=== PATIENT | female | born 1975 | race Caucasian/White ===

== ENCOUNTER → 2022-06-11 | Outpatient (CLI) | payer OTHER ==
[2022-06-11 19:44] LABS: BASOPHILS ABSOLUTE AUTO 0.05 K/mm3 (0.00-0.23); BASOPHILS PERCENT AUTO 1 % (0-2); EOSINOPHILS ABSOLUTE AUTO 0.38 K/mm3 (0.00-0.68); EOSINOPHILS PERCENT AUTO 4 % (0-6); Hematocrit 42.4 % (33.0-51.0); Hemoglobin 14.2 g/dL (11.5-16.0); IMMATURE GRAN ABSOLUTE AUTO 0.03 K/mm3 (0.00-0.10); IMMATURE GRAN PERCENT AUTO 0 % (0-1); LYMPHOCYTES ABSOLUTE AUTO 2.71 K/mm3 (0.84-5.20); LYMPHOCYTES PERCENT AUTO 31 % (21-46); MONOCYTES ABSOLUTE AUTO 0.84 K/mm3 (0.16-1.47); MONOCYTES PERCENT AUTO 10 % (4-13); Mean Corpuscular HGB 30.3 pg (26.0-34.0); Mean Corpuscular HGB Conc 33.5 g/dL (31.5-36.5); Mean Corpuscular Volume 90 fL (80-100); NEUTROPHILS ABSOLUTE AUTO 4.87 K/mm3 (1.96-9.15); NEUTROPHILS PERCENT AUTO 55 % (41-73); Platelet Count 269 K/mm3 (150-400); RDW Coefficient Variation 13.5 % (11.7-14.2); RDW Standard Deviation 44.5 fL (35.1-46.3); Red Blood Cell Count 4.69 M/mm3 (3.80-5.20); White Blood Cell Count 8.88 K/mm3 (4.00-11.30)
[2022-06-11 20:58] LABS: Albumin/Globulin Ratio 1.1 (0.8-1.8); Bilirubin, Total 0.4 mg/dL (0.1-1.0); Bun/Creatinine Ratio 21.8 (12.0-20.0); Calcium, Blood 9.6 mg/dL (8.5-10.1); Creatinine, Blood 0.69 mg/dL (0.40-1.00); Globulin, Blood 3.7 g/dL (2.2-4.0); Potassium, Blood 3.5 mmol/L (3.5-5.5); Total Protein, Blood 7.7 g/dL (6.4-8.2)
== END | disposition home or self-care (01) ==
LOC: LAB 16:20 → LAB SHORT 16:20
PROVIDERS: Registered Nurse Community Health
DX: Z12.4 Encounter for screening for malignant neoplasm of cervix (principal); R19.09 Other intra-abdominal and pelvic swelling, mass and lump
CPT/HCPCS: 80053; 85025

== ENCOUNTER → 2022-08-14 | Outpatient (CLI) | payer OTHER ==
[~2022-08-14] MED LIST: CYCL10 PO; METR500 PO; TRAZ50 PO
[2022-08-15 09:09] LABS: Candida species (DNA Probe) Negative (NEGATIVE); G. vaginalis (DNA Probe) Positive (NEGATIVE); T. vaginalis (DNA Probe) Positive (NEGATIVE)
== END | disposition home or self-care (01) ==
LOC: LAB SHORT 17:00 → LAB 17:00
PROVIDERS: Registered Nurse Community Health
DX: D06.0 Carcinoma in situ of endocervix (principal); R87.811 Vaginal high risk human papillomavirus (HPV) DNA test positive; N92.6 Irregular menstruation, unspecified; R89.8 Other abnormal findings in specimens from other organs, systems and tissues
CPT/HCPCS: 87480; 87510; 87660; 88305

== ENCOUNTER 2022-08-23 14:10 | Inpatient (IN) | payer OTHER ==
[~2022-08-23] VITALS: Ht 165.1 cm; Wt 56.3 kg
[2022-08-23 14:35] LABS: Chloride (POC) 104 mmol/L (98-108); Creatinine (POC) 0.7 mg/dL (0.6-1.0); Glucose (ISTAT POC) 113 mg/dL (70-99); Hemoglobin (POC) 13.9 g/dL (12.0-16.0); Potassium (POC) 3.8 mmol/L (3.5-5.5); Sodium (POC) 140 mmol/L (135-148); Total CO2 (POC) 24 mmol/L (21-32)
[2022-08-23 14:57] LABS: BASOPHILS ABSOLUTE AUTO 0.05 K/mm3 (0.00-0.23); BASOPHILS PERCENT AUTO 1 % (0-2); EOSINOPHILS ABSOLUTE AUTO 0.27 K/mm3 (0.00-0.68); EOSINOPHILS PERCENT AUTO 3 % (0-6); Hematocrit 40.9 % (33.0-51.0); Hemoglobin 13.8 g/dL (11.5-16.0); IMMATURE GRAN ABSOLUTE AUTO 0.03 K/mm3 (0.00-0.10); IMMATURE GRAN PERCENT AUTO 0 % (0-1); LYMPHOCYTES ABSOLUTE AUTO 2.82 K/mm3 (0.84-5.20); LYMPHOCYTES PERCENT AUTO 27 % (21-46); MONOCYTES ABSOLUTE AUTO 1.04 K/mm3 (0.16-1.47); MONOCYTES PERCENT AUTO 10 % (4-13); Mean Corpuscular HGB 30.8 pg (26.0-34.0); Mean Corpuscular HGB Conc 33.7 g/dL (31.5-36.5); Mean Corpuscular Volume 91 fL (80-100); NEUTROPHILS ABSOLUTE AUTO 6.31 K/mm3 (1.96-9.15); NEUTROPHILS PERCENT AUTO 60 % (41-73); Platelet Count 277 K/mm3 (150-400); RDW Standard Deviation 43.9 fL (35.1-46.3); Red Blood Cell Count 4.48 M/mm3 (3.80-5.20); White Blood Cell Count 10.52 K/mm3 (4.00-11.30)
[2022-08-23 15:02] LABS: Alanine Aminotransfer (ALT/SGP 30 U/L (12-78); Albumin, Blood 4.1 g/dL (3.4-5.0); Albumin/Globulin Ratio 1.2 (0.8-1.8); Alk Phos 78 U/L (50-136); Anion Gap 5 mmol/L (6-16); Aspartate Aminotrans (AST/SGOT 18 U/L (12-37); Bilirubin, Total 0.3 mg/dL (0.1-1.0); Blood Urea Nitrogen 19 mg/dL (8-24); Bun/Creatinine Ratio 22.9 (12.0-20.0); CO2, Blood 26 mmol/L (21-32); Calcium, Blood 9.6 mg/dL (8.5-10.1); Chloride, Blood 108 mmol/L (98-108); Creatinine, Blood 0.83 mg/dL (0.40-1.00); Ethanol (Alcohol), Blood, Med <3 mg/dL; Globulin, Blood 3.5 g/dL (2.2-4.0); Glomerular Filtration Rate 89 (60-); Glucose, Blood 122 mg/dL (70-99); Potassium, Blood 3.9 mmol/L (3.5-5.5); Sodium, Blood 139 mmol/L (136-145); Total Protein, Blood 7.6 g/dL (6.4-8.2)
[2022-08-23 15:20] LABS: Source, Urine Foley catheter
[2022-08-23 15:26] LABS: Appearance, Urine Clear (Clear); Bilirubin, Urine Neg (Neg); Blood, Urine Neg (Neg); Color, Urine Yellow (P-Yellow); Glucose Qualitative, Urine Neg (Neg); Ketones, Urine Neg (Neg); Leukocyte Esterase, Urine 1+ (Neg); Nitrite, Urine Neg (Neg); Protein, Urine Neg (Neg); Specific Gravity, Urine 1.025 (1.003-1.022); Urobilinogen, Urine NORM (Normal)
[2022-08-23 15:33] LABS: Bacteria Mod /hpf; Red Blood Cells, Urine 0-2 /hpf (0-2); Squamous Epithelial Cells Mod /hpf (Few)
[2022-08-23 15:53] LABS: U Cannabinoids Screen DETECTED
[2022-08-23 15:54] LABS: U Amphetamine Screen DETECTED; U Barbituate Screen Not Detected; U Benzodiazapine Screen Not Detected; U Buprenorphine Screen Not Detected; U Cocaine Screen Not Detected; U Methadone Screen Not Detected; U Methamphetamine Screen DETECTED; U Opiates Screen Not Detected; U Oxycodone Screen DETECTED; U Phencyclidine Screen Not Detected; U Propoxyphene Screen Not Detected
[2022-08-23] MEDS ORDERED: CYCL10 PO (16:12)
[2022-08-23 16:59] LABS: PCO2 Arterial 43.3 mmHg (35-45); PO2 Arterial 151 mmHg (80-100); pH Blood Arterial 7.36 (7.35-7.45)
[2022-08-23 17:04] LABS: Magnesium, Blood 2.2 mg/dL (1.6-2.4); Salicylate 7.6 mg/dL (2.8-20.0)
[2022-08-23 17:20] LABS: Acetaminophen, Random <2.0 ug/mL (10.0-30.0)
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
--- NOTE | 2022-08-23 19:45 | NUR ---
ASSUMPTION OF CARE: ASSUMED CARE OF PT AT 1900. PT IS CURRENTLY SLEEPING IN BED WITH TAT X [address] VE[address] IN PL[address]. PT IS ALERT TO PAIN STIMULI AND GRIMANCING/WITHDRAWING FROM PAIN. PRECEDEX STARTED AT 1930 AT 0.3 MCG/KG/MIN. PT CURRENTLY ON 2 L NC WITH RR 12-14 AND O2 LEVELS MAINTAINING 98<; PT HAS EVEN, UNLABORED BREATHS. LUNG SOUNDS ARE CLEAR THROUGHOUT WITH DIM BASES. PT HAS CONTINUOUS SPIRAL BINDER IN PLACE AND HR IN THE 80'S AND SBP IN THE 100'S. PT HAS A SOFT, NON-TENDER ABD WITH HYPOACTIVE BS IN ALL FOUR QUADRANTS. PT HAS A TEMP SULLIVAN IN PLACE THAT IS DRAINING TO GRAVITY; URINE YELLOW AND CLEAR. WARM EXTREMITIES, CAP REFIL < 3 SECONDS, AND PPP X 4. 1:1 SITTER PRESENT AND ROOM BREAKDOWN COMPLETE. POWERGLIDE PLACED IN DORIE AND FIRST LR BOLUS STARTED. SEIZURE PADS PLACED AT THIS TIME. WILL CONTINUE TO MONITOR THROUGHOUT THE NIGHT.
--- NOTE | 2022-08-23 21:43 | NUR ---
UPDATE PT SDago MONAE REQUESTING TO SEE PT AT 2100. HE WAS INFORMED OF THE VISITING HOURS AND GIVEN AN UPDATE ON PT CONDITION. HE WAS ABLE TO PROVIDE INFORMATION THAT THE PT ONLY TAKES FLEXERIL AVAILABLE TO TAKE THREE TIMES A DAY PRN BUT SHE TAKES ONE A DAY. HIS PHONE NUMBER IS [phone]. HE AGREED TO COME BACK IN THE AM.
[2022-08-24 00:57] LABS: Base Excess Venous 1.1 mmol/L; Bicarbonate Venous 24.8 mmol/L (24.0-30.0); PCO2 Venous 50.2 mmHg (38-42); pH Blood Venous 7.34 (7.34-7.37)
[2022-08-24 01:44] LABS: Albumin, Blood 2.9 g/dL (3.4-5.0); Bilirubin, Total 0.5 mg/dL (0.1-1.0); Calcium, Blood 8.9 mg/dL (8.5-10.1); Creatinine, Blood 0.7 mg/dL (0.40-1.00); Globulin, Blood 2.9 g/dL (2.2-4.0); Potassium, Blood 3.8 mmol/L (3.5-5.5); Total Protein, Blood 5.8 g/dL (6.4-8.2)
[2022-08-24 03:18] LABS: BASOPHILS ABSOLUTE AUTO 0.03 K/mm3 (0.00-0.23); BASOPHILS PERCENT AUTO 0 % (0-2); EOSINOPHILS ABSOLUTE AUTO 0.24 K/mm3 (0.00-0.68); EOSINOPHILS PERCENT AUTO 3 % (0-6); Hematocrit 34.4 % (33.0-51.0); Hemoglobin 11.7 g/dL (11.5-16.0); IMMATURE GRAN ABSOLUTE AUTO 0.02 K/mm3 (0.00-0.10); IMMATURE GRAN PERCENT AUTO 0 % (0-1); LYMPHOCYTES PERCENT AUTO 24 % (21-46); MONOCYTES ABSOLUTE AUTO 0.57 K/mm3 (0.16-1.47); MONOCYTES PERCENT AUTO 8 % (4-13); Mean Corpuscular HGB 30.9 pg (26.0-34.0); Mean Corpuscular Volume 91 fL (80-100); NEUTROPHILS ABSOLUTE AUTO 4.55 K/mm3 (1.96-9.15); NEUTROPHILS PERCENT AUTO 64 % (41-73); RDW Coefficient Variation 13.1 % (11.7-14.2); RDW Standard Deviation 43.7 fL (35.1-46.3); Red Blood Cell Count 3.79 M/mm3 (3.80-5.20); White Blood Cell Count 7.11 K/mm3 (4.00-11.30)
[2022-08-24 03:20] LABS: Mean Platelet Volume 9.9 fL (9.1-12.4); Platelet Count 203 K/mm3 (150-400)
[2022-08-24 03:35] LABS: Albumin, Blood 2.9 g/dL (3.4-5.0); Bilirubin, Total 0.5 mg/dL (0.1-1.0); Bun/Creatinine Ratio 16.2 (12.0-20.0); Calcium, Blood 8.7 mg/dL (8.5-10.1); Creatinine, Blood 0.68 mg/dL (0.40-1.00); Globulin, Blood 2.9 g/dL (2.2-4.0); Potassium, Blood 3.8 mmol/L (3.5-5.5); Total Protein, Blood 5.8 g/dL (6.4-8.2)
--- NOTE | 2022-08-24 05:58 | NUR ---
SHIFT SUMMARY: NO ACUTE CHANGES THIS SHIFT. THE PT SEDATED AND SLEEPING IN BED THROUGHOUT THE NIGHT. THE REMAINS IN PRECEDEX AT 0.5 MCG/KG/MIN AND 1/2 L NC. VSS THROUGHOUT THE SHIFT. PT RECIEVED TOTAL OF 2 MG ATIVAN THROUGHOUT THE NIGHT FOR PERIODIC AGGITATION WITH REPOSITIONING AND PT CARE. PT TOLERATED ORAL CARE AND REPOSITIONING WELL THIS SHIFT. WILL CONTINUE TO MONITOR UNTIL ONCOMING RN ARRIVES.
--- NOTE | 2022-08-24 07:15 | NUR ---
ASSUME CARE: I have assumed care of this patient.
--- NOTE | 2022-08-24 12:41 | NUR ---
POISON CONTROL: this RN spoke with and updated poison control over the telephone
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
--- NOTE | 2022-08-24 15:50 | NUR ---
POISON CONTROL UPDATED BY THIS RN
--- NOTE | 2022-08-24 19:11 | NUR ---
SHIFT SUMMARY: NEURO: pt clearing. She is slow to respoind, but speech is coherent. Pt oriented to self, place, and day. She states she she does not remember what happened leading up to hospitalization. BEAVER weakly. CARDIAC: WNL RESPIRATORY: CTA ON RA GI/: rangel draining to gravity. no BM. passed bedside swallow SKIN: no breakdown noted PSYCH/SOCIAL: pt placed on 2 MD hold. She was informed of her Civil Rights by this RN. She is tearful.
--- NOTE | 2022-08-25 04:51 | NUR ---
PATIENT RESTED WITH EYES CLOSED THROUGHOUT THE NIGHT WITH 1:1 SITTER AT BEDSIDE. HEMODYNAMICALLY STABLE. SPO2 WNL ON RA. NO ACUTE CHANGES
--- NOTE | 2022-08-25 09:12 | NUR ---
AM NOTE: PATIENT ALERT AND ORIENTED X3. ABLE TO STATE NAME, , AND THAT SHE IS IN HOSPITAL. DENIES NUMBNESS/TINGLING. WEAKNESS NOTED WITH BILATERAL OIL EXTRACTOR STRENGTH. DROWSY THIS AM FALLING ASLEEP EASILY. ON ROOM AIR, LUNGS SOUNDING CLEAR. DENIES SOB/COUGH. TELE SHOWING SINUS RHYTHM THIS AM WITH HR 90'S. DENIES CHEST PAIN/PRESSURE. BP STABLE. STRONG PERIPHERAL PULSES. DENIES ABDOMINAL PAIN/NAUSEA. TOELRATING FULL LIQUID DIET. BOWEL TONES PRESENT. SULLIVAN CATH REMOVED THIS AM. ATTENDS IN PLACE. SI PRECAUTIONS IN PLACE. SITTER AT BEDSIDE. CAMERA ON FOR SAFETY. MEDICAL STATUS NO TELE AT THIS TIME. DENIES NEEDS. WILL CONTINUE TO MONITOR.
--- NOTE | 2022-08-25 10:04 | NUR ---
POISON CONTROL CALLED, THIS RN UPDATED ON ORIENTATION/MENTATION, RECENT VITALS AND MEDICATIONS. NO NEW RECOMMENDATIONS AT THIS TIME.
--- NOTE | 2022-08-25 17:06 | NUR ---
DR. DE SANTIAGO IN ROOM AT THIS TIME.
--- NOTE | 2022-08-25 19:21 | NUR ---
SHIFT SUMMARY: NO ACUTE CHANGES THROUGHOUT SHIFT. PATIENT MENTATION IMPROVING THROUGHOUT DAY. DR. FRANKEL BY THIS EVENING. NEW ORDERS IN PLACE. SI PRECAUTIONS CHANGED TO LOW. PATIENT CONTINUES TO VERBALIZE NO IDEALATIONS OF SELF HARM. DENIES ANY SI THOUGHTS. VITAL SIGNS REMAINS STABLE. TOELRATING PO DIET. CALL LIGHT IN REACH. REPORTED OFF TO YUN ALONZO.
--- NOTE | 2022-08-25 23:01 | NUR ---
CARE ASSUMPTION: PATIENT ASLEEP IN BED, ROOM MEDICATED PER CHART. PATIENT DENIES SI AT THIS TIME. VS WNL ON RA. INDEPENDENT TO TOILET WITH SUPERVISION. PATIENT DENIES N/V/D/CHEST PAIN/SOB, REPORTS MILD HEADACHE THAT "WILL GO AWAY" AN STATES "I'M JUST REALLY TIRED." MEDICATED PER EMAR. BED ALARM SET. SHORT CORD CALL LIGHT IN PLACE.
--- NOTE | 2022-08-26 05:10 | NUR ---
SHIFT SUMMARY: PATIENT DENIES SI, CHEST PAIN/SOB/N/V/D. DROWSY T/O SHIFT, STATES SHE HAS SLEPT WELL. MEDICATED PER EMAR. BED LOW WITH SHORT CORD CALL LIGHT IN REACH AND BED ALARM SET. NO ADVERSE EVENTS THIS SHIFT. WILL CONTINUE TO MONITOR UNTIL REPORT TO DAY RN.
[2022-08-26] MEDS ORDERED: METR500 PO (13:41)
[2022-08-26] MEDS ORDERED: TRAZ50 PO (13:42)
--- NOTE | 2022-08-26 15:08 | NUR ---
Discharge Summary Pt alert, oriented x4 calm and cooperative with care; withdrawn. Pt denies pain, chest pain, sob, nausea, dizziness and numb/tingling. Spo2 >90% on ra. Pt denies SI t/o shift. Melissakauf at bedside this afternoon, dropped hold. Vss. no other acute changes noted. Educated pt regarding discharge instructions, follow up appointments and medications. Educdated pt on misuse of medications and suicide hotline. Discussed reaching out to hotline, friend or family if those thoughts return, or come back to been seen. Prescription called to [facility]. Pt left on foot with daughter.
== END 2022-08-26 14:56 | disposition home or self-care (01) | DRG 917 ==
LOC: ER 14:10 → ICUE 14:11 → ERHOLD 14:11 → ICUE 18:29 → PCU 08-24 15:37 → ICUE 08-24 15:37 → PCU 08-24 19:27
PROVIDERS: Emergency Medicine; ADMIT Student in an Organized Health Care Education/Training Program
DX: T48.1X2A Poisoning by skeletal muscle relaxants [neuromuscular blocking agents], intentional self-harm, initial encounter (principal); G92.8 Other toxic encephalopathy; N76.0 Acute vaginitis; F32.9 Major depressive disorder, single episode, unspecified; C53.9 Malignant neoplasm of cervix uteri, unspecified; Z79.899 Other long term (current) drug therapy
CPT/HCPCS: 36415; 36600; 70450; 80047; 80053; 81001; 82140; 82550; 82803; 82947; 83735; 84703; 85014; 85025; 87086; 93005; 93010; 96372; 96374; 96375; 99285-25; A9270; C1751; G0378; G0480; J1650; J2060; J2310; J7050; J7120